=== PATIENT | female | born 1975 | race Hispanic/Latino ===

== ENCOUNTER → 2018-03-18 | Outpatient (CLI) | payer BC ==
--- NOTE | 2018-03-18 14:03 | Diagnostic Imaging Report ---
EXAMINATION: CT of the abdomen and pelvis without contrast. TECHNIQUE: Spiral CT images of the abdomen and pelvis were performed from the lung bases to the lesser trochanters. No intravenous contrast was given per renal stone protocol. Coronal and sagittal reformatted images were obtained. COMPARISON: None. CLINICAL HISTORY:Hematuria, UTI DISCUSSION: ABSENCE OF INTRAVENOUS CONTRAST DECREASES SENSITIVITY FOR DETECTION OF FOCAL LESIONS AND VASCULAR PATHOLOGY. ABDOMEN/PELVIS: LOWER THORAX: 3 mm nodule left lower lobe series 3 image 9. HEPATOBILIARY:No focal hepatic lesion or intrahepatic biliary ductal dilatation. The gallbladder is collapsed. SPLEEN: Multiple calcified splenic granulomata. No splenomegaly. PANCREAS: No focal masses or ductal dilatation. ADRENALS: No adrenal nodules. KIDNEYS/URETERS: No hydronephrosis, stones, or solid mass lesions. PELVIC ORGANS/BLADDER: The urinary bladder is incompletely distended and poorly evaluated. Multiple pelvic phleboliths. Uterus is anteflexed and is unremarkable. No adnexal mass. PERITONEUM/RETROPERITONEUM: No free air or fluid. LYMPH NODES: No pelvic sidewall, retroperitoneal, or mesenteric lymphadenopathy. VESSELS: Limited evaluation without intravenous contrast. The abdominal aorta is nonaneurysmal. GI TRACT: The large bowel shows no evidence of distention or wall thickening. The appendix is normal. There is no small bowel dilatation to suggest obstruction. BONES AND SOFT TISSUES: No focal soft tissue abnormalities. Bone islands in the left femoral head. No osseous destructive lesions. IMPRESSION: No acute intra-abdominal or pelvic CT abnormalities. No CT evidence of urolithiasis. 3 mm left lower lobe pulmonary nodule is likely a noncalcified granuloma in the setting of evidence of prior granulomatous infection elsewhere. A follow-up CT scan of the chest without contrast may be obtained in one year if the patient is at increased risk of malignancy. Signed by: Dr. Wil Rhodes M.D. on 03/18/2018 2:00 PM
--- NOTE | 2018-04-02 08:21 | Diagnostic Imaging Report ---
#[id number] - [id number] #BILATERAL DIGITAL SCREENING MAMMOGRAM WITH CAD: 03/18/2018 CLINICAL: Routine screening. No prior exams were available for comparison. Current study contains 4 films. The tissue of both breasts is heterogeneously dense. This may lower the sensitivity of mammography. Current study was also evaluated with a Computer Aided Detection (CAD) system. There is an irregular asymmetry in the left breast at 1 o'clock middle depth. Benign calcifications in the right breast. No other significant masses, calcifications, or other findings are seen in either breast. IMPRESSION: INCOMPLETE: NEEDS ADDITIONAL IMAGING EVALUATION The irregular asymmetry in the left breast is indeterminate. Additional views with focal spot compression and possible ultrasound are recommended. The patient will be contacted by the Mammography Department to schedule this appointment. Glynn Pedraza Jr., D.O. cw/:04/01/2018 10:33:38 Furniture Dipper: Shahida JOSEPH)(Syd), [facility] letter sent: Additional Imaging Needed Mammogram BI-RADS: 0 Indeterminate
== END ==
LOC: CT 12:09
PROVIDERS: ATTEND Internal Medicine
DX: Z12.31 Encounter for screening mammogram for malignant neoplasm of breast (principal); R31.9 Hematuria, unspecified; N39.0 Urinary tract infection, site not specified
CPT/HCPCS: 74176; 77067

== ENCOUNTER → 2018-04-17 | Outpatient (CLI) | payer BC ==
--- NOTE | 2018-04-17 16:23 | Diagnostic Imaging Report ---
#[id number] - [id number] #UNILATERAL LEFT DIGITAL DIAGNOSTIC MAMMOGRAM WITH SPOT COMPRESSION: 04/17/2018 Comparison is made to exam dated: 03/18/2018 mammogram - [facility]. Current study contains 3 films. The tissue of the left breast is heterogeneously dense. This may lower the sensitivity of mammography. The asymmetry noted on the prior study appears to press out. No mass is seen. No significant masses, calcifications, or other findings are seen in the breast. There has been no significant interval change. IMPRESSION: BENIGN There is no mammographic evidence of malignancy. A 1 year screening mammogram is recommended. The patient will be notified by letter of the results. Glynn Pedraza Jr., D.O. cw/:04/17/2018 12:29:14 Funder: Shahida GIBSON(R)(M), [facility] letter sent: Normal Exam Mammogram BI-RADS: 2 Benign
== END ==
LOC: MAMMO 11:37
PROVIDERS: ATTEND Internal Medicine
DX: N64.89 Other specified disorders of breast (principal)

== ENCOUNTER → 2018-04-24 | Outpatient (CLI) | payer BC ==
--- NOTE | 2018-04-24 11:42 | Diagnostic Imaging Report ---
Thyroid ultrasound History: Thyrotoxicosis. Comparison: None Findings: The thyroid echotexture is normal. Vascularity is normal. The right lobe measures 3.3 x 1.2 x 1.6 cm. The left lobe measures 4.1 x 1.1 x 1.3 cm. The isthmus measures 0.4 cm. Nodules: Right Lobe: No cystic mass or discrete solid nodule identified. Left Lobe: There is a 0.7 x 0.4 x 0.4 cm isoechoic (1 point), solid (2 points) nodule with smooth margins (0 points) without echogenic foci (0 points) and is wider than tall (0 points) in the left inferior pole thyroid posteriorly. Isthmus: No cystic mass or discrete solid nodule identified. Lymph Nodes: No cervical lymph nodes are identified. Parathyroids: Not visualized. IMPRESSION: A 0.7 cm TI-RADS 3 nodule in the left inferior pole thyroid. Given small size, no biopsy or follow-up is recommended per TI-RADS protocol. No specific sonographic evidence of thyroiditis. ACR glossary of thyroid rads TI-RADS 1: No focal lesion. TI-RADS 2: Not suspicious. TI-RADS 3: Mildly suspicious (recommend FNA is greater than or equal to 2.5 cm; follow-up at 1, 3, and 5 years if greater than or equal to 1.5 cm) TI-RADS 4: Moderately Suspicious (recommend FNA is greater than or equal to 1.5 cm; follow-up at 1, 2, 3, and 5 years) TI-RADS 5: Highly suspicious (recommend FNA is greater than or equal to 10 mm) TI-RADS 6: Biopsy-proven malignancy Signed by: Dr. Mg Up MD on 04/24/2018 11:39 AM
== END ==
LOC: US 09:51
PROVIDERS: ATTEND Internal Medicine
DX: E05.90 Thyrotoxicosis, unspecified without thyrotoxic crisis or storm (principal)
CPT/HCPCS: 76536